=== PATIENT | female | born 1960 | race Caucasian/White ===

== ENCOUNTER 2024-02-10 15:35 | Emergency (ER) | payer MEDICARE, BC, SELFPAY ==
[2024-02-10] VITALS (8 sets, daily range): BP systolic 177–200; BP diastolic 72–90; PULSE 72–82; RESP 10–16; TEMP 36.6; O2SAT 89–98; BMI 25.7
--- NOTE | 2024-02-10 16:22 | ED.GENADULT ---
HPI - General Adult General Chief complaint: Chest Pain Stated complaint: chest pain Time Seen by Provider: 02/10/24 15:36 History of Present Illness HPI narrative: The patient is a 63 year white female who is on chronic morphine for joint pain, who presents with episode of chest pain that began today when she woke up she said it got worse. She felt hot with that, she has not had known heart disease. She reports that she has had her typical morphine dose adjust morning, she does have hypertension, she does not report elevated cholesterol. She does report that she takes metformin for diabetes non-insulin dependent. Patient has had no leg swelling or edema no recent travel. The patient has a skin disorder where she picks at her skin it has been irritative. The patient has had no recent illness such as cough fever chills. She presents to ED for evaluation with her family. Apparently there is no family history of significant heart disease. Related Data Home Medications Medication Instructions Recorded Confirmed aspirin 81 mg capsule 81 mg PO DAILY 02/10/24 02/10/24 clonidine HCl .ROUTE 02/10/24 duloxetine PO 02/10/24 lisinopril 5 mg tablet 5 mg PO DAILY 02/10/24 02/10/24 lorazepam .ROUTE 02/10/24 metformin 500 mg tablet 1,000 mg PO BID 02/10/24 02/10/24 morphine 15 mg immediate release 15 mg PO BID PRN 02/10/24 02/10/24 tablet morphine 15 mg tablet,extended 15 mg PO Q12H 02/10/24 02/10/24 release tramadol 50 mg tablet 100 mg PO TID 02/10/24 02/10/24 Allergies Allergy/AdvReac Type Severity Reaction Status Date / Time acetaminophen [From Percocet] AdvReac Mild Itching Verified 02/10/24 15:54 caffeine AdvReac Mild Headache Verified 02/10/24 15:54 oxycodone [From Percocet] AdvReac Mild Itching Verified 02/10/24 15:54 Review of Systems Status of ROS: Reports: 6 or more systems reviewed and unremarkable except as noted in History and below Exam Narrative: Exam Narrative: Objective: Patient's blood pressure is elevated 200/72, she is afebrile Alert orient x3, patient is calm. HEENT shows excoriated areas where she has picked that her skin over her cheeks. Neck is supple No facial asymmetry Chest is clear Heart rhythm regular heart murmur Abdomen benign soft Extremities are no edema neurologic nonfocal good peripheral perfusion noted Const: Vital Signs, click to edit/add: Vital Signs - 24 hr 02/10/24 15:37 02/10/24 16:18 Temperature 97.9 F Pulse Rate [Pulse Oximeter] 82 Respiratory Rate 16 Blood Pressure [Ri ght Upper Arm] 200/72 H Pulse Oximetry 97 95 Oxygen Delivery Me thod Room Air Course Vital Signs Vital signs: Initial Vital Signs Temperature 97.9 F 02/10/24 15:37 Temperature Source Temporal Artery Scan 02/10/24 15:37 Pulse Rate 82 02/10/24 15:37 Respiratory Rate 16 02/10/24 15:37 Blood Pressure 200/72 H 02/10/24 15:37 Blood Pressure Mean 114 H 02/10/24 15:37 Blood Pressure Position Sitting 02/10/24 15:37 Pulse Oximetry 97 02/10/24 15:37 Oxygen Delivery Method Room Air 02/10/24 15:37 Vital Signs Temperature 97.9 F 02/10/24 15:37 Pulse Rate 82 02/10/24 15:37 Respiratory Rate 16 02/10/24 15:37 Blood Pressure 200/72 H 02/10/24 15:37 Pulse Oximetry 97 02/10/24 15:37 Oxygen Delivery Method Room Air 02/10/24 15:37 Temperature 97.9 F 02/10/24 15:37 Pulse Rate 82 02/10/24 15:37 Respiratory Rate 16 02/10/24 15:37 Blood Pressure 200/72 H 02/10/24 15:37 Pulse Oximetry 95 02/10/24 16:18 Oxygen Delivery Method Room Air 02/10/24 15:37 Medications Administered Medications: Generic Name Dose Route Start Last Admin Trade Name Freq PRN Reason Stop Dose Admin Sodium Chloride 500 mls @ 500 mls/hr 02/10/24 16:18 02/10/24 16:51 0.9 % Sodium Chloride 500 Ml IV 02/10/24 17:17 500 mls/hr .Q1H ONE Administration Discontinued Medications Generic Name Dose Route Start Last Admin Trade Name Freq PRN Reason Stop Dose Admin Aspirin 324 mg 02/10/24 16:18 02/10/24 16:36 Aspirin 81 Mg Tab.Chew PO 02/10/24 16:19 324 mg ONCE ONE Administration Morphine Sulfate 4 mg 02/10/24 16:18 02/10/24 16:36 Morphine 4 Mg/Ml Inj IVP 02/10/24 16:19 4 mg ONCE ONE Administration Medical Decision Making MDM Narrative Medical decision making narrative: [age] year white female with intermittent chest pain throughout the day today. History of chronic pain syndrome with joint pain that requires morphine couple times a day with long-acting and short-acting components. She has hypertension and is non it has been a diabetic. I think given those that situation wished rule out acute coronary syndrome, PE, other intrathoracic pathology. Patient does have an EKG that shows normal sinus rhythm and nonspecific ST changes. I do not have an old 1 to compare to. Will do a troponin as well as serial troponin and repeat an EKG. Will get a chest CT, labs, give aspirin now. Will also give some additional morphine now for pain relief. Patient reports her pain is markedly down at this point. Addendum 4:53 p.m. the patient reported increasing pain in her chest, troponin came back came back point of care 0.21, and her EKG was repeated she appeared to have a little bit more ST depression in lead [address] elevation in lead V2 in V1 I think this would constitute an acute MT, and I would do a level 1 protocol. The patient will get ticagrelor, IV heparin, she has received aspirin and morphine. Will start a nitroglycerin drip. Will need transfer to [facility] level 1 care, will go by ground ambulance at least for now, and will monitor patient's symptomology and vital signs. Dr. Garcia at [facility] did receive copies of the EKG and agreed that this is a level 1 chest pain case, and patient was undressed from the waist down and will be transferred via ground ambulance which will be her more promptly, and has received all the medications including heparin bolus and drip, IV nitroglycerin, IV heparin, aspirin and ticagrelor. Lab Data Labs: Lab Results 02/10/24 Range/Units 16:19 POC Troponin I 0.21 H (0.01-0.04) ng/ml Critical Care Time Critical Care Time Total Critical Care Time in Minutes: 95 Discharge Plan Discharge Clinical Impression: Chest pain, ACS (acute coronary syndrome) Patient Disposition: Xfer [facility] Prescriptions: No Action morphine 15 mg tablet extended release 15 mg PO Q12H lisinopril 5 mg tablet 5 mg PO DAILY morphine 15 mg tablet 15 mg PO BID PRN tramadol 50 mg tablet 100 mg PO TID clonidine HCl .ROUTE duloxetine [Cymbalta] PO lorazepam .ROUTE metformin 500 mg tablet 1,000 mg PO BID aspirin 81 mg capsule 81 mg PO DAILY Stand Alone Forms: [facility] Info Instructions
[2024-02-10] MEDS: ASPIRIN 81 MG TAB.CHEW 324 MG PO (16:36)
[2024-02-10] MEDS: MORPHINE 4 MG/ML INJ IVP ×2 (16:36→17:17)
[2024-02-10] MEDS: 0.9 % SODIUM CHLORIDE 500 ML 500 ML IV (16:51)
[2024-02-10] MEDS: NITROGLYCERIN 0.4 MG TAB.SUBL SUBLINGUAL (16:52)
[2024-02-10] MEDS: NITROGLYCERIN/DEXTROSE 25,000 MCG/250 ML BOTTLE 6 MCG IVPB (16:52)
[2024-02-10 17:05] LABS: Troponin, Point-of-Care* 0.21 ng/ml (0.01-0.04)
[2024-02-10 17:14] LABS: Albumin* 4.4 g/dL (3.3-5.0); Chloride* 104 mmol/L (96-114)
[2024-02-10 17:15] LABS: Potassium* 3.7 mmol/L (3.6-5.1); Sodium* 135 mmol/L (135-149)
[2024-02-10 17:17] LABS: Creatinine* 0.7 mg/dL (0.5-1.5); Est. Creatinine Clearance* 47.01; Estimated Glomerular Filt Rate 97 ml/min
[2024-02-10] MEDS: HEPARIN 25,000 UNIT/500 ML BAG 16 UNIT IV (17:17)
[2024-02-10 17:18] LABS: Alanine Aminotransferase* 9 U/L (4-35); Alkaline Phosphatase* 92 U/L (40-150); Anion Gap 6 mEq/L (7-15); Aspartate Amino Transferase* 20 U/L (12-35); Bilirubin Direct* 0.2 mg/dL (0.0-0.5); Bilirubin Total* 0.4 mg/dL (0.1-1.5); Blood Urea Nitrogen* 10 mg/dL (7-30); Calcium* 9.4 mg/dL (8.4-10.6); Carbon Dioxide* 25 mmol/L (20-32); Glucose* 118 mg/dL (60-115); Total Protein* 8.2 g/dL (6.0-8.3)
[2024-02-10] MEDS: LORazepam 2 MG/ML inj 1 MG IVP (17:19)
[2024-02-10 17:20] LABS: C Reactive Protein* 2.7 mg/dL (0.5-1.0)
[2024-02-10] MEDS: TICAGRELOR 90 MG TABLET 180 MG PO (17:21)
[2024-02-10] MEDS: HEPARIN 5,000 UNIT/0.5 ML INJ 3900 UNIT IVP (17:21)
[2024-02-10 17:29] LABS: Basophils Percent Auto 0.2 % (0.0-3.0); Eosinophils Percent Auto 0.4 % (0.0-7.0); Hematocrit 36.9 % (33.0-51.0); Immature Granulocytes Pct Auto 0.2 %; Lymphocytes Percent Auto 15.7 % (20-44); Mean Corpuscular HGB Conc 33 gm/dL (32-36); Mean Corpuscular Hemoglobin 30 pg (26-34); Mean Corpuscular Volume 91 fL (80-100); Monocytes Percent Auto 5.8 % (0.0-11.0); Neutrophils Percent Auto 77.7 % (42.0-72.0); Platelet Count* 271 K/uL (140-440); RDW Coefficient of Variation % 13.1 % (11.5-15.5); Red Blood Count 4.06 m/uL (4.00-5.20); White Blood Count* 12.16 K/uL (4.50-11.00)
--- NOTE | 2024-02-10 17:30 | ED.NURSE ---
Pt report given to EMS.
[2024-02-10 17:31] LABS: Slide Review Reflex No
[2024-02-10 17:33] LABS: NT Pro B Type NatriureticPept* 1110 pg/mL
--- NOTE | 2024-02-10 17:35 | ED.NURSE ---
Pt report given to [facility] nurseMelanie.
[2024-02-10 17:47] LABS: INR 0.85 (0.91-1.10)
[2024-02-10 17:58] LABS: Partial Thromboplastin Time* 27 Seconds (23-33)
== END 2024-02-10 17:40 | disposition short-term general hospital (02) ==
PROVIDERS: Emergency Provider Family Medicine; PCP Family Medicine
DX: R07.9 Chest pain, unspecified (principal); I24.9 Acute ischemic heart disease, unspecified
CPT/HCPCS: 36415; 80048; 80076; 83880; 84484; 85025; 85027; 85610; 85730; 86140; 93005; 94761; 99285; 99291; 99292; A9270; J1644; J2060; J2270; J7030

== ENCOUNTER 2024-02-10 17:23 | Outpatient (CLI) | payer MEDICARE, BC, SELFPAY | END 2024-02-10 17:24 | disposition home or self-care (01) | LOC: AMB 02-11 09:26 | PROVIDERS: PCP Family Medicine; Visit Provider Family Medicine | DX: I24.9 Acute ischemic heart disease, unspecified (principal) | CPT/HCPCS: A0425; A0434 ==